=== PATIENT | female | born 1940 | race Caucasian/White ===

== ENCOUNTER → 2018-01-22 | Outpatient (CLI) | payer OTHER, MEDICARE ==
[~2018-01-22] MED LIST: ADVAIR 250/501 DISK IH; ASPIR-LOW81 MG PO; ATROVENT 00.5 MG/2.5 IH; GLUCOPHAGE500 MG PO; MYCOSTATIN 100,60 ML PO; OMEPRAZOLE20 MG PO; PREDNISONE1 MG PO; PREDNISONE10 MG PO; PREDNISONE50 MG PO; PROVENTIL,2.5 MG/0.5 IH; VICODIN,LORT1 TABLET PO
== END | disposition home or self-care (01) ==
LOC: NUC 08:06
DX: R68.81 Early satiety (principal)
CPT/HCPCS: 78264; A9541